=== PATIENT | male | born 1990 | race Caucasian/White ===

== ENCOUNTER 2016-11-23 21:23 | Emergency (ER) | payer BC, MEDICAID ==
[~2016-11-23] VITALS: Ht 175.3 cm; Wt 63.5 kg
[~2016-11-23 21:23] MED LIST: HYDR-7 PO; OMEP20TA24 PO; SUCR1ORA PO; inhaler
--- OUTSIDE RECORDS SUMMARY | 2016-11-23 21:32 | XMS REPORT ---
Author Author GENERATED, SYSTEM Organization Unknown Address Unknown Phone Unavailable Care Team Providers Care Master Automotive Glass Technician Name Role Phone UNASSIGNED DOCTOR , DOCTOR PP [phone] Reason For Visit Chief Complaint LT ARM NUMBNESS Social History Functional Status Vital Signs Results Problems Encounter Diagnosis No relevant problems exist. Encounters Encounter Diagnosis No relevant problems exist. Plan of Care Procedures No relevant procedures performed. Immunizations No immunizations administered or ordered. Hospital Course Hospital Discharge Instructions Allergies, Adverse Reactions, Alerts * Latex Allergy has not been assessed. * IV Contrast Allergy has not been assessed. * No Known Drug Allergies. * No Known Food Allergies. * No Known Allergies. Medication Medication reconciliation has not been performed.
--- OUTSIDE RECORDS SUMMARY | 2016-11-23 21:32 | XMS REPORT ---
Author Author GENERATED, SYSTEM Organization Unknown Address Unknown Phone Unavailable Care Team Providers Care Animal Cop Name Role Phone UNASSIGNED DOCTOR , DOCTOR PP [phone] Reason For Visit Reason for Visit from 09/17/2014 11:07 AM:* Pt Stated Reason for Adm : SI Reason for Visit from 09/16/2014 9:00 PM:* Pt Stated Reason for Adm : SI Chief Complaint SCHIZOAFFECTIVE Social History Social History from 09/21/2014 11:58 AM:* Tobacco Use? : Never Smoker Social History from 09/17/2014 11:07 AM:* Tobacco Use? : Never Smoker Social History from 09/16/2014 9:00 PM:* Tobacco Use? : Never Smoker Functional Status Functional Status from 09/21/2014 7:51 AM:* LOC : Alert * Oriented To : Person,Place,Time,Event * Weight Bearing Status : Full * Assist Level : Independent * # Assists : Independent Functional Status from 09/20/2014 7:55 PM:* LOC : Alert * Oriented To : Person,Place,Time,Event * Weight Bearing Status : Full * Assist Level : Independent * # Assists : Independent Functional Status from 09/20/2014 9:28 AM:* LOC : Alert * Oriented To : Person,Place,Time,Event * Weight Bearing Status : Full * Assist Level : Independent * # Assists : Independent Functional Status from 09/19/2014 8:25 PM:* LOC : Alert * Oriented To : Person,Place,Time,Event * Weight Bearing Status : Full * Assist Level : Independent * # Assists : Independent Functional Status from 09/19/2014 7:51 AM:* LOC : Alert * Oriented To : Person,Place,Time,Event * Weight Bearing Status : Full * Assist Level : Independent * # Assists : Independent Functional Status from 09/18/2014 7:37 PM:* LOC : Alert * Oriented To : Person,Place,Time,Event * Weight Bearing Status : Full * Assist Level : Independent * # Assists : Independent Functional Status from 09/18/2014 8:10 AM:* LOC : Alert * Oriented To : Person,Place,Time,Event * Weight Bearing Status : Full * Assist Level : Independent * # Assists : Independent Functional Status from 09/17/2014 8:00 PM:* LOC : Alert * Oriented To : Person,Place,Time,Event * Weight Bearing Status : Full * Assist Level : Independent * # Assists : Independent Functional Status from 09/17/2014 8:31 AM:* LOC : Alert * Oriented To : Person,Place,Time,Event * Weight Bearing Status : Full * Assist Level : Independent * # Assists : Independent Functional Status from 09/16/2014 9:00 PM:* LOC : Alert * Oriented To : Person,Place,Time,Event * Weight Bearing Status : Full * Assist Level : Independent * # Assists : Independent Vital Signs Hospital Vital Signs from 09/21/2014 6:16 AM:* Weight : 69.9/ kg * Height : 5/10 ft,in * Temperature : 98.2 F * Pulse : 69 * Respirations : 18 * BP : 127/73 Hospital Vital Signs from 09/20/2014 6:52 AM:* Height : 5/10 ft,in * Temperature : 98.5 F * Pulse : 92 * Respirations : 18 * BP : 119/67 Hospital Vital Signs from 09/19/2014 6:32 AM:* Height : 5/10 ft,in * Temperature : 98.5 F * Pulse : 70 * Respirations : 18 * BP : 119/70 Hospital Vital Signs from 09/18/2014 6:42 AM:* Weight : 68.5/ kg * Height : 5/10 ft,in * Temperature : 97.6 F * Pulse : 76 * Respirations : 18 * BP : 105/60 Hospital Vital Signs from 09/17/2014 9:47 PM:* Height : 5/10 ft,in * Temperature : 97.4 F * Pulse : 66 * Respirations : 18 * BP : 136/74 Hospital Vital Signs from 09/17/2014 5:54 PM:* Height : 5/10 ft,in * Temperature : 98.2 F * Pulse : 75 * Respirations : 18 * BP : 125/78 Hospital Vital Signs from 09/17/2014 9:34 AM:* Height : 5/10 ft,in Hospital Vital Signs from 09/17/2014 6:16 AM:* Height : 5/10 ft,in * Temperature : 97.5 F * Pulse : 64 * Respirations : 20 * BP : 115/70 Hospital Vital Signs from 09/16/2014 9:35 PM:* Weight : 70.8/ kg * Height : 5/10 ft,in * Temperature : 98.8 F * Pulse : 75 * Respirations : 18 * BP : 152/96 Hospital Vital Signs from 09/16/2014 9:00 PM:* Weight : 70.8/ kg * Height : 5/10 ft,in Results Chemistry from 09/17/2014 6:44 AMGLUCOSE (FASTING) 98 MG/DL (65-99 MG/DL) Problems Encounter Diagnosis No relevant problems exist. Encounters Encounter Diagnosis No relevant problems exist. Plan of Care Follow-up Appointments from 09/21/2014 11:58 AM:* #1 Office appointment: : Zacarias Tay * #1 Date/Time : 09/22/2014 12:00 PM * Address # 1 : [facility]: [address], [address] * #2 Office appointment: : Mari Zaman * #2 Date/Time : 09/24/2014 11:30 AM * Address # 2 : [facility]: [address], [address] Procedures No relevant procedures performed. Immunizations No immunizations administered or ordered. Hospital Course Hospital Discharge Instructions How to care for yourself at home from 09/21/2014 11:58 AM:* Discharge Activity : Activity as tolerated,May Shower * Discharge Diet : As before hospitalization * Call your doctor if: : Fever over 101 F or severe chills,Chest pain or other unexplained symptoms,Tingling or numbness develops,A sudden increase or decrease in weight,You have persistent or worsening symptoms Allergies, Adverse Reactions, Alerts * No Latex Allergy. * No IV Contrast Allergy. * No Known Drug Allergies. * No Known Food Allergies. * No Known Allergies. Medication It is the responsibility of the patient or patient patient account representative to confirm the list of medications with either the patient's personal care provider or the patient's follow-up care provider to ensure the patient has an appropriate list of medications to take at home. Discharge medications New medications* risperidone (RisPERDal) 1 mg Tablet, Ordered By: QUIQUE HUDSON, PAC Directions: 1 tablet oral daily at bedtime * sertraline (Zoloft) 50 mg Tablet, Ordered By: DINO MALHOTRA Directions: 1 tablet oral daily * traZODone 100 mg Tablet, Ordered By: QUIQUE HUDSON, PAC Directions: 1 tablet oral daily at bedtime Stopped medications* OLANZapine (ZyPREXA) 20 mg Tablet Directions: 1 tablet oral daily at bedtime for Schizophrenia
--- OUTSIDE RECORDS SUMMARY | 2016-11-23 21:32 | XMS REPORT ---
Author Author GENERATED, SYSTEM Organization Unknown Address Unknown Phone Unavailable Care Team Providers Care Compressor Station Chief Engineer Name Role Phone UNASSIGNED DOCTOR , DOCTOR PP [phone] Reason For Visit Chief Complaint CUT TO BACK Social History Functional Status Vital Signs Results Problems Encounter Diagnosis No relevant problems exist. Encounters Encounter Diagnosis No relevant problems exist. Plan of Care Procedures No relevant procedures performed. Immunizations No immunizations administered or ordered. Hospital Course Hospital Discharge Instructions Allergies, Adverse Reactions, Alerts * Latex Allergy has not been assessed. * IV Contrast Allergy has not been assessed. Medication Medication reconciliation has not been performed.
--- OUTSIDE RECORDS SUMMARY | 2016-11-23 21:32 | XMS REPORT ---
Author Author GENERATED, SYSTEM Organization Unknown Address Unknown Phone Unavailable Care Team Providers Care Curriculum And Instruction Specialist Name Role Phone UNASSIGNED DOCTOR , DOCTOR PP [phone] Reason For Visit Chief Complaint RIGHT HAND INJURY Social History Functional Status Vital Signs Results DX Radiology from 09/09/2015 11:41 AMHAND RIGHT 3 VIEWS History: fall, right hand pain . Technique: 3view hand Priors: None. Findings: There is a minimally displaced fracture of the distal 5th metacarpal bone with slight palmar displacement and angulation of the distal fracture fragment. No additional fractures are seen. The distal radius and ulna appear intact. The carpal bones and joint spaces appear well maintained. Impression: Minimally displaced fracture of the distal 5th metacarpal bone. Electronically signed by: Tamika Forrest MD Dictated: 09/09/2015 12:18 Problems Encounter Diagnosis No relevant problems exist. [...]
--- OUTSIDE RECORDS SUMMARY | 2016-11-23 21:32 | XMS REPORT ---
Author Author GENERATED, SYSTEM Organization Unknown Address Unknown Phone Unavailable Care Team Providers Care Tip Length Checker Name Role Phone UNASSIGNED DOCTOR , DOCTOR PP [phone] Reason For Visit Reason for Visit from 08/12/2014 6:36 PM:* Pt Stated Reason for Adm : Pt is having SI along with A/V hallucinations Reason for Visit from 08/12/2014 1:07 PM:* Pt Stated Reason for Adm : Pt is having SI along with A/V hallucinations Chief Complaint SCHIZOAFFECTIVE Social History Social History from 08/17/2014 11:44 AM:* Tobacco Use? : Never Smoker Social History from 08/12/2014 6:36 PM:* Tobacco Use? : Never Smoker Social History from 08/12/2014 1:07 PM:* Tobacco Use? : Never Smoker Functional Status Functional Status from 08/17/2014 9:06 AM:* LOC : Alert * Oriented To : Person,Place,Time,Event * Weight Bearing Status : Full * Assist Level : Independent * # Assists : Independent Functional Status from 08/16/2014 8:40 PM:* LOC : Alert * Oriented To : Person,Place,Time,Event * Weight Bearing Status : Full * Assist Level : Independent * # Assists : Independent Functional Status from 08/16/2014 9:43 AM:* LOC : Alert * Oriented To : Person,Place,Time,Event * Weight Bearing Status : Full * Assist Level : Independent * # Assists : Independent Functional Status from 08/15/2014 8:00 PM:* LOC : Alert * Oriented To : Person,Place,Time,Event * Weight Bearing Status : Full * Assist Level : Independent * # Assists : Independent Functional Status from 08/15/2014 8:58 AM:* LOC : Alert * Oriented To : Person,Place,Time,Event * Weight Bearing Status : Full * Assist Level : Independent * # Assists : Independent Functional Status from 08/14/2014 7:35 PM:* LOC : Alert * Oriented To : Person,Place,Time,Event * Weight Bearing Status : Full * Assist Level : Independent * # Assists : Independent Functional Status from 08/14/2014 9:22 AM:* LOC : Alert * Oriented To : Person,Place,Time * Weight Bearing Status : Full * Assist Level : Independent * # Assists : Independent Functional Status from 08/13/2014 7:54 PM:* LOC : Alert * Oriented To : Person,Place,Time,Event * Weight Bearing Status : Full * Assist Level : Independent * # Assists : Independent Functional Status from 08/13/2014 9:16 AM:* LOC : Alert * Oriented To : Person,Place,Time,Event * Weight Bearing Status : Full * Assist Level : Independent * # Assists : Independent Functional Status from 08/12/2014 8:55 PM:* LOC : Alert * Oriented To : Person,Place,Time,Event * Weight Bearing Status : Full * Assist Level : Independent * # Assists : Independent Functional Status from 08/12/2014 1:07 PM:* LOC : Alert * Oriented To : Person,Place,Time,Event * Weight Bearing Status : Full * Assist Level : Independent * # Assists : Independent Vital Signs Hospital Vital Signs from 08/17/2014 5:42 AM:* Weight : 62.9/ kg * Height : 5/8 ft,in * Temperature : 98.2 F * Pulse : 66 * Respirations : 18 * BP : 134/79 Hospital Vital Signs from 08/16/2014 5:50 AM:* Height : 5/8 ft,in * Temperature : 96.6 F * Pulse : 74 * Respirations : 18 * BP : 121/77 Hospital Vital Signs from 08/15/2014 6:21 AM:* Height : 5/8 ft,in * Temperature : 98.2 F * Pulse : 70 * Respirations : 18 * BP : 136/81 Hospital Vital Signs from 08/14/2014 7:08 AM:* Height : 5/8 ft,in * Temperature : 97.4 F * Pulse : 77 * Respirations : 18 * BP : 108/60 Hospital Vital Signs from 08/13/2014 4:09 PM:* Height : 5/8 ft,in * Temperature : 98.8 F * Pulse : 74 * Respirations : 21 * BP : 118/68 Hospital Vital Signs from 08/13/2014 7:27 AM:* Height : 5/8 ft,in Hospital Vital Signs from 08/13/2014 7:09 AM:* Height : 5/8 ft,in * Temperature : 98.2 F * Pulse : 66 * Respirations : 18 * BP : 103/54 Hospital Vital Signs from 08/12/2014 1:07 PM:* Weight : 64.9/ kg * Height : 5/8 ft,in Results Chemistry from 08/12/2014 2:27 PMCOCAINE NEGATIVE (NEG <150 ) PCP NEGATIVE (NEG <25 ) OXYCODONE NEGATIVE (NEG <100 ) *PROPOXYPHENE (NORPROPOXYPHENE) (LAB) NEGATIVE (NEG <300 ) CANNABINOIDS POSITIVE A (NEG <50 ) BENZODIAZEINE NEGATIVE (NEG <150 ) AMPHETAMINE NEGATIVE (NEG <500 ) BARBITURATES NEGATIVE (NEG <200 ) METHAMPHETAMINES NEGATIVE (NEG <500 ) METHADONE (UR) NEGATIVE (NEG <200 ) OPIATES NEGATIVE (NEG <100 ) TRICYCLICS NEGATIVE (NEG <300 ) Chemistry from 08/12/2014 2:25 PMSODIUM 144 MMOL/L (136-145 MMOL/L) POTASSIUM 3.3 MMOL/L L (3.5-5.1 MMOL/L) CHLORIDE 107 MMOL/L (98-107 MMOL/L) TCO2 29.4 MMOL/L (21.0-32.0 MMOL/L) ANION GAP 7.6 MMOL/L L (8.0-16.0 MMOL/L) BUN 11 MG/DL (7-18 MG/DL) CREATININE 0.81 MG/DL (0.63-1.13 MG/DL) BUN/CREATININE RATIO 13.6 (9.1-17.0 ) GLUCOSE 104 MG/DL H (65-99 MG/DL) GFR EST NON AFR SPANISH >90 ML/MIN GFRA EST AFR AMER >90 ML/MIN CALCIUM 9.6 MG/DL (8.5-10.1 MG/DL) BILIRUBIN TOTAL 0.46 MG/DL (0.20-1.00 MG/DL) TOTAL PROTEIN 7.7 GM/DL (6.4-8.2 GM/DL) ALBUMIN 4.3 GM/DL (3.4-5.0 GM/DL) GLOBULIN 3.4 GM/DL (2.3-3.5 GM/DL) A/G RATIO 1.3 MG/DL L (1.5-2.2 MG/DL) ALK PHOS 90 U/L (46-116 U/L) ALT (SGPT) 23 U/L (12-78 U/L) AST (SGOT) 15 U/L (15-37 U/L) TSH 1.01 UIU/ML (0.34-4.82 UIU/ML) THYROXINE FREE 0.86 NG/DL (0.59-1.19 NG/DL) Hematology from 08/12/2014 2:25 PMWBC 9.8 X10e3/UL (3.6-11.2 X10e3/UL) RBC 5.18 X10e6/UL (4.06-5.63 X10e6/UL) HEMOGLOBIN 16.5 G/DL H (12.5-16.3 G/DL) HEMATOCRIT 47.9 % H (36.7-47.1 %) MCV 92.6 FL (80.0-100.0 FL) MCH 31.8 PG (27.0-33.0 PG) MCHC 34.3 G/DL (32.0-36.0 G/DL) RDW 13.3 % (12.3-17.0 %) RDWSD 42.9 (37.1-47.8 ) PLATELET 266 X10e3/UL (159-386 X10e3/UL) MPV 8.2 FL (7.4-10.4 FL) Urinalysis from 08/12/2014 2:27 PMURINE COLOR YELLOW (STRAW/YELL/DK YELL ) URINE APPEARANCE CLEAR (CLEAR ) URINE PH 6.5 (5.0-8.0 ) URINE SPECIFIC GRAVITY 1.010 (<=1.005->=1.030 ) URINE GLUCOSE NEGATIVE MG/DL (NEGATIVE MG/DL) URINE BILIRUBIN NEGATIVE (NEGATIVE ) URINE KETONES NEGATIVE MG/DL (NEGATIVE MG/DL) URINE BLOOD NEGATIVE (NEGATIVE ) URINE PROTEIN NEGATIVE MG/DL (NEGATIVE MG/DL) URINE UROBILINOGEN 0.2 EU/DL (0.2-1.0 EU/DL) URINE NITRITES NEGATIVE (NEGATIVE ) *URINE LEUKOCYTES NEGATIVE (NEGATIVE ) Problems Encounter Diagnosis No relevant problems exist. Encounters Encounter Diagnosis No relevant problems exist. Plan of Care Follow-up Appointments from 08/17/2014 11:44 AM:* #1 Office appointment: : DINO Pierre * #1 Date/Time : 08/27/2014 11:00 AM * Address # 1 : [facility]: [address], [address], [place] * #2 Office appointment: : Laurence Harrington * #2 Date/Time : 08/24/2014 8:00 AM * Address # 2 : [facility]: [address], [address], [place] Procedures No relevant procedures performed. Immunizations No immunizations administered or ordered. Hospital Course Hospital Discharge Instructions How to care for yourself at home from 08/17/2014 11:44 AM:* Discharge Activity : Activity as tolerated * Discharge Diet : Diet as tolerated * Call your doctor if: : Fever [...] the responsibility of the patient or patient corporate representative to confirm the list of medications with either the patient's personal care provider or the patient's follow-up care provider to ensure the patient has an appropriate list of medications to take at home. Discharge medications New medications* OLANZapine (ZyPREXA) 20 mg Tablet, Ordered By: EYAD HARRIS MD Directions: 1 tablet oral daily at bedtime for Schizophrenia Stopped medications* None
--- OUTSIDE RECORDS SUMMARY | 2016-11-23 21:32 | XMS REPORT ---
Author Author Breanna Harris Organization [employer] Address Unknown Phone Unavailable Care Team Providers Care Circuitry Negative Inspector Name Role Phone Breanna Harris CP Unavailable Allergies No Known Allergies Problems Problem Type Condition Code Onset Dates Condition Status Problem Other mental problems V40.2 Active Assessment Schizoaffective disorder, depressive type F25.1 Active Problem Esophageal reflux 530.81 Active Medications Medication Code System Code Instructions Start Date End Date Status Dosage Omeprazole NDC 0 20 mg 1 DRC orally once a day Aug 18, 2011 Sep 09, 9999 SI cap(s) orally once a day Seroquel NDC 0 25 mg 1 TAB orally 2 times a day Aug 18, 2011 Sep 09, 9999 SI tab(s) orally once a day (in the evening) Procedures Procedure Coding System Code Date Behavior Intervention CPT-4 05846 Jun 08, 2016 Behavior Re-Assessment CPT-4 93093 Jun 08, 2016 Results No Known Results Summary Purpose [employer] Submission
--- OUTSIDE RECORDS SUMMARY | 2016-11-23 21:32 | XMS REPORT | Continuity of Care Document ---
Author Author [facility] Address Unknown Phone Unavailable Care Team Providers Care Cement Sack Breaker Name Role Phone [employer] Unavailable Unavailable Problems Medications Allergies, Adverse Reactions, Alerts Immunizations Results Vital Signs Encounters Procedures Plan of Care Social History Assessment and Plan Family History Value Date Source Advance Directives Order Name Results Value Date Source
--- OUTSIDE RECORDS SUMMARY | 2016-11-23 21:32 | XMS REPORT ---
Author Author GENERATED, SYSTEM Organization Unknown Address Unknown Phone Unavailable Care Team Providers Care Dental Assistant Name Role Phone UNASSIGNED DOCTOR , DOCTOR PP [phone] Reason For Visit Chief Complaint FRACTURED RIGHT HAND Social History Functional Status Vital Signs Results DX Radiology from 10/04/2015 11:24 AMHAND RIGHT 3 VIEWS History: 3wk s/p fx with hand pain . Onset was 3and 1/2 weeks ago, was seen here for broken hand. was told to to f/u with orthopedist. Pt wearing a splint ro rt hand. Technique: 3view hand Priors: Right hand films dated 09/09/2015 Findings: There is overall stable alignment of a minimally displaced, mildly angulated fracture of the distal 5th metacarpal bone. There has been development of subtle callus formation. The fracture lines remain visualized. No new fractures are seen. There is no dislocation. The distal radius and ulna appear intact. Impression: Stable alignment of a mildly displaced angulated fracture of the distal 5th metacarpal bone with development of mild callus formation. Electronically signed by: Tamika Forrest MD Dictated: 10/04/2015 12:10 Problems Encounter Diagnosis No relevant problems exist. [...]
--- OUTSIDE RECORDS SUMMARY | 2016-11-23 21:32 | XMS REPORT ---
Author Author GENERATED, SYSTEM Organization Unknown Address Unknown Phone Unavailable Care Team Providers Care Mainspring Fabrication Supervisor Name Role Phone UNASSIGNED DOCTOR , DOCTOR PP [phone] Reason For Visit Chief Complaint ALLERGIC REACTION SWOLLEN LIPS Social History Functional Status Vital Signs Results Chemistry from 08/30/2015 5:27 PMSODIUM 141 MMOL/L (136-145 MMOL/L) POTASSIUM 3.2 MMOL/L L (3.5-5.1 MMOL/L) CHLORIDE 103 MMOL/L (98-107 MMOL/L) TCO2 25.8 MMOL/L (21.0-32.0 MMOL/L) *ANION GAP 12.2 MMOL/L (8.0-16.0 MMOL/L) BUN 11 MG/DL (7-18 MG/DL) CREATININE 1.10 MG/DL (0.70-1.30 MG/DL) *BUN/CREATININE RATIO 10.0 (9.1-17.0 ) GLUCOSE 110 MG/DL H (65-99 MG/DL) *GFR EST NON AFR TRISTANIAN >90 ML/MIN *GFRA EST AFR AMER >90 ML/MIN CALCIUM 8.7 MG/DL (8.5-10.1 MG/DL) BILIRUBIN TOTAL 0.45 MG/DL (0.20-1.00 MG/DL) TOTAL PROTEIN 7.3 GM/DL (6.4-8.2 GM/DL) ALBUMIN 4.2 GM/DL (3.4-5.0 GM/DL) *GLOBULIN 3.1 GM/DL (2.3-3.5 GM/DL) *A/G RATIO 1.4 MG/DL L (1.5-2.2 MG/DL) ALK PHOS 82 U/L (46-116 U/L) ALT (SGPT) 39 U/L (14-59 U/L) AST (SGOT) 25 U/L (15-37 U/L) Hematology from 08/30/2015 5:27 PMWBC 10.1 X10e3/UL (3.6-11.2 X10e3/UL) RBC 5.24 X10e6/UL (4.06-5.63 X10e6/UL) HEMOGLOBIN 16.8 G/DL H (12.5-16.3 G/DL) HEMATOCRIT 49.2 % H (36.7-47.1 %) *MCV 93.9 FL (80.0-100.0 FL) *MCH 32.1 PG (27.0-33.0 PG) *MCHC 34.2 G/DL (32.0-36.0 G/DL) *RDW 13.4 % (12.3-17.0 %) *RDWSD 43.3 (37.1-47.8 ) PLATELET 197 X10e3/UL (159-386 X10e3/UL) *MPV 8.0 FL (7.4-10.4 FL) AUTOMATED DIFF PERFORMED SEGS 67.3 % *LYMPHOCYTES 18.9 % *MONOCYTES 11.9 % *EOSINOPHILS 1.3 % *BASOPHILS 0.6 % *ABSOLUTE NEUTROPHILS 6.80 X10e3/UL (1.80-7.80 X10e3/UL) *ABSOLUTE LYMPHOCYTES 1.90 X10e3/UL (1.00-3.00 X10e3/UL) *ABSOLUTE MONOCYTES 1.20 X10e3/UL H (0.30-1.00 X10e3/UL) *ABSOLUTE EOSINOPHILS 0.10 X10e3/UL (0.00-0.50 X10e3/UL) *ABSOLUTE BASOPHILS 0.10 X10e3/UL (0.00-0.20 X10e3/UL) Problems Encounter Diagnosis No relevant problems exist. [...]
--- OUTSIDE RECORDS SUMMARY | 2016-11-23 21:32 | XMS REPORT ---
Author Author GENERATED, SYSTEM Organization Unknown Address Unknown Phone Unavailable Care Team Providers Care Lead Oxide Mill Tender Name Role Phone UNASSIGNED DOCTOR , DOCTOR PP [phone] Reason For Visit Chief Complaint CRISIS Social History Functional Status Vital Signs Results Chemistry from 09/16/2014 6:20 PMSODIUM 138 MMOL/L (136-145 MMOL/L) POTASSIUM 3.6 MMOL/L (3.5-5.1 MMOL/L) CHLORIDE 102 MMOL/L (98-107 MMOL/L) TCO2 26.6 MMOL/L (21.0-32.0 MMOL/L) ANION GAP 9.4 MMOL/L (8.0-16.0 MMOL/L) BUN 17 MG/DL (7-18 MG/DL) CREATININE 0.87 MG/DL (0.63-1.13 MG/DL) BUN/CREATININE RATIO 19.5 H (9.1-17.0 ) GLUCOSE 106 MG/DL H (65-99 MG/DL) GFR EST NON AFR NIGERIAN >90 ML/MIN GFRA EST AFR AMER >90 ML/MIN CALCIUM 9.5 MG/DL (8.5-10.1 MG/DL) BILIRUBIN TOTAL 0.52 MG/DL (0.20-1.00 MG/DL) TOTAL PROTEIN 8.1 GM/DL (6.4-8.2 GM/DL) ALBUMIN 4.3 GM/DL (3.4-5.0 GM/DL) GLOBULIN 3.8 GM/DL H (2.3-3.5 GM/DL) A/G RATIO 1.1 MG/DL L (1.5-2.2 MG/DL) ALK PHOS 89 U/L (46-116 U/L) ALT (SGPT) 126 U/L H (12-78 U/L) AST (SGOT) 32 U/L (15-37 U/L) ALCOHOL <0.003 GM/DL ACETAMINOPHEN <2 MCG/ML L (10-30 MCG/ML) SALICYLATE 2.5 MG/DL L (2.8-20.0 MG/DL) Chemistry from 09/16/2014 6:10 PMCOCAINE NEGATIVE (NEG <150 ) PCP NEGATIVE [...] <100 ) TRICYCLICS NEGATIVE (NEG <300 ) Hematology from 09/16/2014 6:20 PMWBC 7.9 X10e3/UL (3.6-11.2 X10e3/UL) RBC 5.04 X10e6/UL (4.06-5.63 X10e6/UL) HEMOGLOBIN 16.2 G/DL (12.5-16.3 G/DL) HEMATOCRIT 47.0 % (36.7-47.1 %) MCV 93.4 FL (80.0-100.0 FL) MCH 32.2 PG (27.0-33.0 PG) MCHC 34.4 G/DL (32.0-36.0 G/DL) RDW 13.6 % (12.3-17.0 %) RDWSD 44.2 (37.1-47.8 ) PLATELET 242 X10e3/UL (159-386 X10e3/UL) MPV 7.7 FL (7.4-10.4 FL) AUTOMATED DIFF PERFORMED SEGS 55.6 % LYMPHOCYTES 31.1 % MONOCYTES 10.7 % EOSINOPHILS 2.1 % BASOPHILS 0.5 % ABSOLUTE NEUTROPHILS 4.4 X10e3/UL (1.8-7.8 X10e3/UL) ABSOLUTE LYMPHOCYTES 2.5 X10e3/UL (1.0-3.0 X10e3/UL) ABSOLUTE MONOCYTES 0.8 X10e3/UL (0.3-1.0 X10e3/UL) ABSOLUTE EOSINOPHILS 0.2 X10e3/UL (0.0-0.5 X10e3/UL) ABSOLUTE BASOPHILS 0.0 X10e3/UL (0.0-0.2 X10e3/UL) Problems Encounter Diagnosis No relevant problems [...]
--- OUTSIDE RECORDS SUMMARY | 2016-11-23 21:32 | XMS REPORT | Continuity of Care Document ---
Author Author [facility] Organization [facility] Address Unknown Phone Unavailable Allergies Active Description Code Type Severity Reaction Onset Reported/Identified Relationship to Patient Clinical Status Yes No Known Medication Allergies NKMA N/A N/A 10/07/2015 Medications Problems Date Dx Coded Attending Type Code Diagnosis Diagnosed By 10/08/2015 SABIHA MOSQUEDA F1290 Cannabis use, unspecified, uncomplicated 10/08/2015 SABIHA MOSQUEDA [id number] Oth fx fifth MC bone, right hand, subs for fx w routn heal 10/08/2015 SABIHA MOSQUEDA [id number] Unsp fracture of right wrs/hnd, subs for fx w routn heal 10/08/2015 SABIHA MOSQUEDA [id number] Fall on same level due to ice and snow, subsequent encounter 10/08/[address] [id number] Oth place in single-family (private) house as place 10/08/2015 SABIHA MOSQUEDA Y998 Other external cause status Procedures Results Encounters ACCT No. Visit Date/Time Discharge Status Pt. Type Provider Facility Loc./Unit Complaint [id number] 10/04/2015 10:50:00 2015 22:11:10 DIS Emergency SABIHA MOSQUEDA [id number] 09/09/2015 11:05:00 2014 21:42:13 DIS Emergency JULIANO SEGOVIA [id number] 08/30/2015 16:37:00 2014 22:24:13 DIS Emergency [facility]
--- OUTSIDE RECORDS SUMMARY | 2016-11-23 21:32 | XMS REPORT ---
Author Author GENERATED, SYSTEM Organization Unknown Address Unknown Phone Unavailable Care Team Providers Care Cinder Block Mason Name Role Phone UNASSIGNED DOCTOR , DOCTOR PP [phone] Reason For Visit Reason for Visit from [...] H (65-99 MG/DL) GFR EST NON AFR SAMMARINESE >90 ML/MIN GFRA EST AFR AMER >90 [...] 11:00 AM * Address # 1 : [facility]: [address], [address], [place] * #2 Office appointment: : Laurence Harrington * #2 Date/Time : 08/24/2014 8:00 AM * Address # 2 : [facility]: [address], [address], [place] [...] the responsibility of the patient or patient tax compliance representative to confirm the list of medications [...]
--- OUTSIDE RECORDS SUMMARY | 2016-11-23 21:32 | XMS REPORT | Referral Summary ---
Author Author [facility] Organization [facility] Address Unknown Phone Unavailable Encounter VC GALDAMEZ [id number] Date(s): 10/07/15 - 10/07/15 [facility] [address] [place] [address] Discharge Diagnosis: Displaced fracture of neck of fifth metacarpal bone of right hand Discharge Disposition: 01-Home or Self Care Attending Physician: Tai Lyman MD Admitting Physician: Tai Lyman MD Vital Signs Most recent to 1 oldest [Reference Range]: Temperature Oral 36.2 degC [35.8-37.3 degC] (10/07/15 8:36 AM) Problem List No data available for this section Allergies, Adverse Reactions, Alerts No Known Medication Allergies Medications traMADol Oral, 0 Refill(s) Start Date: 10/07/15 Status: Ordered traMADol 50 mg oral tablet 50 mg 1 tabs, Oral, q6hr, as needed for pain, # 30 tabs, 0 Refill(s) Start Date: 10/07/15 Stop Date: 10/08/15 Status: Ordered Results No data available for this section Immunizations Vaccine Date Refusal Reason tetanus-diphth toxoids (Td) adult/adol 12/05/05 Procedures Procedure Date Related Diagnosis Body Site Esophagus1 1surgery Social History Social History Type Response Smoking Status Current every day smoker; Type: Cigars Assessment and Plan No data available for this section
[2016-11-23 21:36] VITALS: Ht 175.3 cm; Wt 63.5 kg
[2016-11-23] MEDS ORDERED: NO ROUTINE MEDS (21:56)
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
--- OUTSIDE RECORDS SUMMARY | 2016-11-23 22:09 | XMS REPORT ---
Author Author GENERATED, SYSTEM Organization Unknown Address Unknown Phone Unavailable Care Team Providers Care Certified Medical Transcriptionist Name Role Phone UNASSIGNED DOCTOR , DOCTOR PP [phone] Reason For Visit Reason for Visit from [...] H (65-99 MG/DL) GFR EST NON AFR TUNISIAN >90 ML/MIN GFRA EST AFR AMER >90 [...] 11:00 AM * Address # 1 : [facility]: [address], [address], [place] * #2 Office appointment: : Laurence Harrington * #2 Date/Time : 08/24/2014 8:00 AM * Address # 2 : [facility]: [address], [address], [place] [...] the responsibility of the patient or patient licensing representative to confirm the list of medications [...]
--- OUTSIDE RECORDS SUMMARY | 2016-11-23 22:09 | XMS REPORT ---
Author Author GENERATED, SYSTEM Organization Unknown Address Unknown Phone Unavailable Care Team Providers Care Senior Engineering Specialist Name Role Phone UNASSIGNED DOCTOR , DOCTOR PP [phone] Reason For Visit Chief Complaint CUT TO [...]
--- OUTSIDE RECORDS SUMMARY | 2016-11-23 22:09 | XMS REPORT | Continuity of Care Document ---
Author Author [facility] Address Unknown Phone Unavailable Care Team Providers Care Cyber Systems Operations Specialist Name Role Phone [employer] Unavailable Unavailable Problems Medications Allergies, Adverse Reactions, Alerts Immunizations Results Vital Signs Encounters Procedures Plan of Care Social History Assessment and Plan Family History Value Date Source Advance Directives Order Name Results Value Date Source
--- OUTSIDE RECORDS SUMMARY | 2016-11-23 22:09 | XMS REPORT ---
Author Author GENERATED, SYSTEM Organization Unknown Address Unknown Phone Unavailable Care Team Providers Care Botany Laboratory Assistant Name Role Phone UNASSIGNED DOCTOR , DOCTOR PP [phone] Reason For Visit Reason for Visit from [...] H (65-99 MG/DL) GFR EST NON AFR BERMUDIAN >90 ML/MIN GFRA EST AFR AMER >90 [...] 11:00 AM * Address # 1 : [facility]: [address], [address], [place] * #2 Office appointment: : Laurence Harrington * #2 Date/Time : 08/24/2014 8:00 AM * Address # 2 : [facility]: [address], [address], [place] [...] the responsibility of the patient or patient printing sales representative to confirm the list of medications [...]
--- OUTSIDE RECORDS SUMMARY | 2016-11-23 22:09 | XMS REPORT ---
Author Author GENERATED, SYSTEM Organization Unknown Address Unknown Phone Unavailable Care Team Providers Care Septic Tank Service Technician Name Role Phone UNASSIGNED DOCTOR , DOCTOR PP [phone] Reason For Visit Chief Complaint ALLERGIC REACTION [...] H (65-99 MG/DL) *GFR EST NON AFR IRISH >90 ML/MIN *GFRA EST AFR AMER >90 [...]
--- OUTSIDE RECORDS SUMMARY | 2016-11-23 22:09 | XMS REPORT ---
Author Author GENERATED, SYSTEM Organization Unknown Address Unknown Phone Unavailable Care Team Providers Care Curtain Stretcher Name Role Phone UNASSIGNED DOCTOR , DOCTOR PP [phone] Reason For Visit Chief Complaint RIGHT HAND [...]
--- OUTSIDE RECORDS SUMMARY | 2016-11-23 22:10 | XMS REPORT ---
Author Author GENERATED, SYSTEM Organization Unknown Address Unknown Phone Unavailable Care Team Providers Care Food And Beverage Attendant Name Role Phone UNASSIGNED DOCTOR , DOCTOR PP [phone] Reason For Visit Chief Complaint FRACTURED RIGHT [...]
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
--- OUTSIDE RECORDS SUMMARY | 2016-11-23 22:10 | XMS REPORT ---
Author Author GENERATED, SYSTEM Organization Unknown Address Unknown Phone Unavailable Care Team Providers Care Merchandise Director Name Role Phone UNASSIGNED DOCTOR , DOCTOR PP [phone] Reason For Visit Chief Complaint CRISIS Social [...] H (65-99 MG/DL) GFR EST NON AFR SLOVAK >90 ML/MIN GFRA EST AFR AMER >90 [...]
--- OUTSIDE RECORDS SUMMARY | 2016-11-23 22:10 | XMS REPORT ---
Author Author GENERATED, SYSTEM Organization Unknown Address Unknown Phone Unavailable Care Team Providers Care Helper Steel Fabrication Name Role Phone UNASSIGNED DOCTOR , DOCTOR PP [phone] Reason For Visit Reason for Visit from [...] 12:00 PM * Address # 1 : [facility]: [address], [address] * #2 Office appointment: : Mari Zaman * #2 Date/Time : 09/24/2014 11:30 AM * Address # 2 : [facility]: [address], [address] Procedures No relevant procedures performed. Immunizations [...] the responsibility of the patient or patient sales representative sales manager to confirm the list of medications with [...]
--- OUTSIDE RECORDS SUMMARY | 2016-11-23 22:10 | XMS REPORT ---
Author Author GENERATED, SYSTEM Organization Unknown Address Unknown Phone Unavailable Care Team Providers Care Title Assistant Name Role Phone UNASSIGNED DOCTOR , DOCTOR PP [phone] Reason For Visit Chief Complaint LT ARM [...]
[2016-11-23] MEDS ORDERED: ORPHENADRINE 60mg/2ml INJECTION IM ONE (22:15)
[2016-11-23] MEDS ORDERED: KETOROLAC 60mg/2ml INJECTION IM ONE (22:15)
[2016-11-23] MEDS ORDERED: PROCHLORPERAZINE 10mg/2ml INJECTION IM ONE (22:15)
--- NOTE | 2016-11-23 23:14 | NUR ---
STATUS PT VOIDS USING URINAL, SAMPLE IS COLLECTED FOR LAB. PT REPORTS NAUSEA AND PAIN IMPROVED, AND RATES HIS PAIN 6/10.
[2016-11-23 23:27] LABS: BLOOD, URINE NEGATIVE (NEGATIVE); COLOR,URINE YELLOW (YELLOW); LEUKOCYTE ESTERASE ,URINE NEGATIVE (NEGATIVE); NITRITE,URINE NEGATIVE (NEGATIVE); UROBILINOGEN,URINE 0.2 EU/DL (NORMAL)
[2016-11-23] MEDS ORDERED: MELO-267 PO (23:38)
[2016-11-23] MEDS ORDERED: CYCL-375 PO (23:38)
[2016-11-24 00:35] VITALS: BP 102/56; PULSE 55; RESP 10; TEMP 98; O2SAT 97
--- NOTE | 2016-11-24 00:35 | NUR ---
DEPART PT IS DISCHARGED AT THIS TIME, INSTRUCTIONS ARE REVIEWED AND UNDERSTANDING IS VOICED. PT LEAVES AMBULATORY WITH FEMALE.
== END 2016-11-24 00:35 | disposition home or self-care (01) ==
LOC: ED 21:23
DX: M62.830 Muscle spasm of back (principal)
CPT/HCPCS: 81003; 96372